=== PATIENT | female | born 1985 | race African-American/Black ===

== ENCOUNTER 2017-11-23 18:25 | Inpatient (IN) | payer SELFPAY ==
[~2017-11-23] VITALS: Ht 167.6 cm; Wt 94.8 kg
[2017-11-23] MEDS ORDERED: NALBUPHINE 10 MG/ML AMP IVP PRN (21:00)
[2017-11-23] MEDS ORDERED: OXYTOCIN 20 UNITS in LACTATED RINGERS 1,000 ML IV SCH (21:00)
[2017-11-23 21:50] LABS: BASOPHILS % (AUTO) 0.4 % (0.0-2.0); EOSINOPHILS # (AUTO) 0.1 K/uL (0-0.4); EOSINOPHILS % (AUTO) 1.3 % (0.0-4.0); HEMATOCRIT 36.2 % (36-48); LYMPHOCYTES # (AUTO) 1.9 K/uL (2.5-16.5); LYMPHOCYTES % (AUTO) 23.9 % (20.5-51.1); MEAN CORPUSCULAR HEMOGLOBIN 29 pg (27-31); MEAN CORPUSCULAR HGB CONC 33 g/dL (33-37); MEAN CORPUSCULAR VOLUME 85.7 fL (80-94); MONOCYTES # (AUTO) 0.8 K/uL (0.8-1.0); MONOCYTES % (AUTO) 9.9 % (1.7-9.3); NEUTROPHILS # (AUTO) 5.2 K/uL (1.8-7.7); NEUTROPHILS % (AUTO) 64.5 % (42.2-75.2); PLATELET COUNT (AUTO) 256 K/uL (140-450); RED BLOOD CELL COUNT(AUTO) 4.22 MIL/uL (4.20-5.40); RED CELL DISTRIBUTION WIDTH 14.3 % (11.6-13.7); WHITE BLOOD COUNT (AUTO) 8.1 K/uL (4.8-10.8)
[2017-11-23 21:57] LABS: APPEARANCE,URINE CLEAR (CLEAR); BILIRUBIN,URINE NEGATIVE (NEGATIVE); BLOOD, URINE NEGATIVE (NEGATIVE); COLOR,URINE YELLOW (YELLOW); LEUKOCYTE ESTERASE ,URINE NEGATIVE (NEGATIVE); NITRITE, URINE NEGATIVE (NEGATIVE); UGLUCOSE NEGATIVE (NEGATIVE)
[2017-11-23 22:06] LABS: ALBUMIN 2.7 g/dL (3.4-5.0); ANION GAP 15.8 (8-16); CARBON DIOXIDE 21.3 mmol/L (21-32); CREATININE 1.1 mg/dL (0.6-1.3); POTASSIUM 4.1 mmol/L (3.5-5.1); TOTAL BILIRUBIN 0.3 mg/dL (0.0-1.0)
[2017-11-23 22:15] LABS: PROTHROMBIN TIME 9.8 secs (10.8-13.4)
[2017-11-23] MEDS: LACTATED RINGERS 1,000 ML IV SCH ×2 (22:20→23:35)
[2017-11-23] MEDS ORDERED: BUPIVACAINE 0.125%/NS PREMIX 250 ML ONE (22:23)
[2017-11-23] MEDS ORDERED: PREN-546 PO (23:46)
[2017-11-23] MEDS ORDERED: FERR-252 PO (23:50)
[2017-11-23] MEDS ORDERED: OSC500 PO (23:50)
[2017-11-23 23:55] VITALS: BP 136/89
[2017-11-24] MEDS: LACTATED RINGERS 1,000 ML IV SCH ×2 (03:38→10:20)
[2017-11-24] MEDS ORDERED: OXYTOCIN 20 UNITS/LR PREMIX 1,000 ML IV ONE (06:45)
[2017-11-24] MEDS ORDERED: OXYTOCIN 10 UNITS/ML VIAL ONE (09:22)
--- NOTE | 2017-11-24 11:01 | NUR ---
PATIENT HAS BEEN SCREENED AND CATEGORIZED LOW NUTRITION RISK. PATIENT WILL BE SEEN WITHIN 7 DAYS OF ADMISSION. 11/30/[address]
[2017-11-24] MEDS ORDERED: IBUPROFEN 600 MG TAB PO PRN (13:55)
[2017-11-24] MEDS ORDERED: ACETAMINOPHEN 325 MG TAB PO PRN (13:55)
[2017-11-24] MEDS ORDERED: OXYTOCIN 20 UNITS in LACTATED RINGERS 1,000 ML IV SCH (13:55)
[2017-11-24] MEDS ORDERED: MEASLES, MUMPS, AND RUBELLA 1 VIAL SQVAC PRN (13:55)
[2017-11-24] MEDS: oxyCODONE/APAP 5/325 MG 1 TAB TAB PO PRN ×2 (15:32→21:36)
[2017-11-24] MEDS ORDERED: oxyCODONE/APAP 5/325 MG 1 TAB TAB PO PRN (21:25)
[2017-11-24] MEDS ORDERED: oxyCODONE/APAP 5/325 MG 1 TAB TAB ONE (21:28)
[2017-11-25 08:33] LABS: BASOPHILS # (AUTO) 0.1 K/uL (0.00-0.22); BASOPHILS % (AUTO) 0.8 % (0.0-2.0); EOSINOPHILS # (AUTO) 0.2 K/uL (0-0.4); EOSINOPHILS % (AUTO) 1.7 % (0.0-4.0); HEMATOCRIT 36.8 % (36-48); HEMOGLOBIN 12.1 g/dL (12.0-16.0); LYMPHOCYTES # (AUTO) 2.9 K/uL (2.5-16.5); LYMPHOCYTES % (AUTO) 21.1 % (20.5-51.1); MEAN CORPUSCULAR HEMOGLOBIN 29 pg (27-31); MEAN CORPUSCULAR HGB CONC 33 g/dL (33-37); MEAN CORPUSCULAR VOLUME 87.6 fL (80-94); MONOCYTES % (AUTO) 7.6 % (1.7-9.3); NEUTROPHILS # (AUTO) 9.5 K/uL (1.8-7.7); NEUTROPHILS % (AUTO) 68.8 % (42.2-75.2); PLATELET COUNT (AUTO) 218 K/uL (140-450); RED CELL DISTRIBUTION WIDTH 14.3 % (11.6-13.7); WHITE BLOOD COUNT (AUTO) 13.8 K/uL (4.8-10.8)
== END 2017-11-25 16:45 | disposition home or self-care (01) | DRG 775 ==
LOC: MLD 18:25 → EDSTATUS 11-24 10:39 → MFCC 11-24 18:20
PROVIDERS: ADMIT Obstetrics & Gynecology; ATTEND Obstetrics & Gynecology
PROC: 10E0XZZ Delivery of Products of Conception, External Approach (ICD-10-PCS; principal; 2017-11-24)
PROC: 10907ZC Drainage of Amniotic Fluid, Therapeutic from Products of Conception, Via Natural or Artificial Opening (ICD-10-PCS; 2017-11-24)
PROC: 00HU33Z Insertion of Infusion Device into Spinal Canal, Percutaneous Approach (ICD-10-PCS; 2017-11-24)
PROC: 3E0R3BZ Introduction of Anesthetic Agent into Spinal Canal, Percutaneous Approach (ICD-10-PCS; 2017-11-24)
DX: O66.0 Obstructed labor due to shoulder dystocia (principal); Z37.0 Single live birth; Z3A.40 40 weeks gestation of pregnancy
CPT/HCPCS: 36415; 51702; 59409; 80053; 81003; 85025; 85610; 85730; 86592; 86850; 86886; 86900; 86901; J2590; J2790; J3490; J7120